=== PATIENT | female | born 1990 | race Caucasian/White ===

== ENCOUNTER 2017-01-04 21:43 | Inpatient (IN) | payer BC ==
[~2017-01-04] VITALS: Ht 162.6 cm; Wt 116.5 kg
[2017-01-04 22:19] LABS: BASO # 0.1 (0.0-0.2); BASO % 0.4 % (0.0-2.0); EOS # 0.1 (0.0-0.7); EOS % 0.9 % (0-4.0); GRAN # 10.7 (1.4-6.5); GRAN % 74.4 % (42.2-75.2); HEMATOCRIT 42.1 % (37.0-47.0); HEMOGLOBIN 14.2 g/dl (12.5-16.0); LYMPH # 2.7 (1.2-3.4); LYMPH % 18.9 % (20.0-51.0); MEAN CELL VOLUME 83 fl (80.0-100.0); MEAN CORPUSCULAR HEMOGLOBIN 28 pg (27.0-31.0); MEAN CORPUSCULAR HGB CONC 34 g/dl (33.0-37.0); MEAN PLATELET VOLUME 10.3 fl (7.4-10.4); MONO # 0.7 (0.1-0.6); MONO % 4.8 % (1.7-9.3); PLATELET COUNT 277 K/mm3 (130-400); REDCELL DISTRIBUTION WIDTH-CV 12.7 % (11.5-14.5); WHITE BLOOD COUNT 14.3 K/mm3 (4.8-10.8)
[2017-01-04 22:29] LABS: PH 6 (5-8); SQUAMOUS EPITHELIAL 0-2 /hpf; URINE APPEARANCE Hazy; URINE BACTERIA Rare /hpf; URINE BILIRUBIN Negative (NEGATIVE); URINE BLOOD Negative (NEGATIVE); URINE COLOR Yellow; URINE GLUCOSE Negative (NEGATIVE); URINE KETONE Negative (NEGATIVE); URINE RBC 0-2 /hpf; URINE UROBILINOGEN Negative (NEGATIVE)
[2017-01-04 22:40] LABS: ADJUSTED CALCIUM 9.2 mg/dL (8.4-10.2); ALBUMIN 4.1 gm/dL (3.5-5.0); BILIRUBIN,TOTAL 0.6 mg/dL (0.0-1.0); CALCIUM 9.3 mg/dL (8.4-10.2); CREATININE, serum 0.72 mg/dL (0.52-1.25); POTASSIUM 4.1 mmol/L (3.4-5.0); TOTAL PROTEIN 7.2 gm/dL (6.4-8.2)
[2017-01-05] VITALS (9 sets, daily range): BP systolic 111–140; BP diastolic 59–78; PULSE 71–106; TEMP 97.4–98.4
[2017-01-06 00:15] VITALS: BP 127/67; PULSE 85; TEMP 98.3
[2017-01-06 05:13] VITALS: BP 116/59; PULSE 64; TEMP 97.5
[2017-01-06 10:10] VITALS: BP 130/74; PULSE 84; TEMP 98.1
[2017-01-06 13:23] VITALS: BP 120/61; PULSE 82; TEMP 99
[2017-01-06 17:57] VITALS: BP 124/60; PULSE 78; TEMP 98.2
[2017-01-06 21:16] VITALS: BP 128/73; PULSE 86; TEMP 98.4
[2017-01-07 01:03] VITALS: BP 127/74; PULSE 83; TEMP 98.1
[2017-01-07 05:10] VITALS: BP 103/55; PULSE 72; TEMP 98.2
[2017-01-07 07:43] LABS: ADJUSTED CALCIUM 9.2 mg/dL (8.4-10.2); ALBUMIN 3.3 gm/dL (3.5-5.0); BILIRUBIN,TOTAL 0.5 mg/dL (0.0-1.0); CALCIUM 8.6 mg/dL (8.4-10.2); CREATININE, serum 0.74 mg/dL (0.52-1.25); POTASSIUM 3.6 mmol/L (3.4-5.0); TOTAL PROTEIN 6.2 gm/dL (6.4-8.2)
[2017-01-07 08:57] VITALS: BP 122/66; PULSE 75; TEMP 98.7
== END 2017-01-07 13:31 | disposition home or self-care (01) | DRG 418 ==
LOC: COL.ER 21:43 → SDCO 01-05 → SURG 01-05 → EDBEDREQ 01-05 00:03 → SURG 01-05 00:32 → SDCO 01-05 00:33 → SURG 01-07 13:31
PROVIDERS: Emergency Medicine; Surgery
PROC: 0FT44ZZ Resection of Gallbladder, Percutaneous Endoscopic Approach (ICD-10-PCS; principal; 2017-01-05 18:30)
DX: K80.00 Calculus of gallbladder with acute cholecystitis without obstruction (principal); Z68.41 Body mass index [BMI] 40.0-44.9, adult; E66.01 Morbid (severe) obesity due to excess calories
CPT/HCPCS: OP; G0378; J1170; J1885; J1956; J2270; J2405; J2550; J2704; J3010; J7030; J7120; Q9967

== ENCOUNTER → 2017-07-19 | Outpatient (REF) | LOC: ZLAB.WCH 18:07 | DX: Z01.89 Encounter for other specified special examinations (principal) ==